=== PATIENT | female | born 1970 | race Two or more races ===

== ENCOUNTER → 2024-01-31 | Outpatient (CLI) | payer BC, SELFPAY ==
--- NOTE | 2024-01-31 14:39 | XR_ITS ---
Examination: Breast ultrasound complete, bilateral Date and time of exam: January 31, 2024 1447 hours INDICATIONS: Intermittent breast pain 5 months, left breast sonogram December 28, 2019 2:00 nodule 5 mm Technique: Real-time grayscale ultrasonographic imaging bilateral breasts, including all 4 quadrants as well as nipple retroareolar and axillary regions. Findings: Sonographic images right breast 12:00 cyst 5 x 7 mm 12:00 cyst 5 x 6 mm 9:00 cyst 4 x 3 mm No solid nodules Sonographic images left breast 2:00 cyst 6 x 6 mm No solid nodules IMPRESSION: BI-RADS Category 2: Benign findings
--- NOTE | 2024-01-31 14:39 | XR_ITS ---
Examination: Diagnostic digital mammography, bilateral Computer aided detection 3-D breast Tomosynthesis, bilateral Date and time of exam: January 31, 2024 1448 hours Compared to mammograms dating to November 30, 2019 Technique: Nonmagnified MLO, CC views of the breasts to been obtained, reconstructed from 3-D Tomosynthesis images. R2 computer aided detection program utilized for evaluation of suspicious masses and/or abnormal calcifications. 3-D Tomosynthesis images obtained. Findings: The breasts are heterogeneously dense, which may obscure small masses Breast biopsy marker slightly upper outer left breast Focal asymmetry stable upper inner left breast Impression: BI-RADS Category 0: Incomplete: Need additional imaging evaluation Recommend ultrasound left breast sonogram follow-up to document focal asymmetric glandular tissue inner left breast Recommend 1 continued 6 month left mammogram follow-up to document focal asymmetry upper outer left breast
== END | disposition home or self-care (01) ==
LOC: CDIM 14:29
PROVIDERS: PCP Physician Assistant; Referring Provider Physician Assistant Medical; Visit Provider Physician Assistant Medical
DX: R92.8 Other abnormal and inconclusive findings on diagnostic imaging of breast (principal); N64.89 Other specified disorders of breast; N60.01 Solitary cyst of right breast; N60.02 Solitary cyst of left breast
CPT/HCPCS: 76641; 77062; 77066; G0279

== ENCOUNTER → 2024-08-16 | Outpatient (CLI) | payer BC, SELFPAY ==
--- NOTE | 2024-08-16 13:30 | XR_ITS ---
Examination: Diagnostic digital mammography, unilateral, left Computer aided detection 3-D breast Tomosynthesis, unilateral Date and time of exam: August 16, 2024 1336 hours INDICATIONS: Mammogram January 31, 2024 focal asymmetry upper inner left breast also noted on February 02, 2023 Technique: Nonmagnified MLO, CC views of the left breast have been obtained, reconstructed from 3-D Tomosynthesis images. R2 computer aided detection program utilized for evaluation of suspicious masses and/or abnormal calcifications. 3-D Tomosynthesis images obtained. Findings: The breast is heterogeneously dense, which may obscure small masses No interval suspicious masses Impression: BI-RADS category 2: Benign findings Return to yearly follow-up mammography
== END | disposition home or self-care (01) ==
PROVIDERS: PCP Physician Assistant; Referring Provider Physician Assistant Medical; Visit Provider Physician Assistant Medical
DX: R92.332 Mammographic heterogeneous density, left breast (principal)
CPT/HCPCS: 77061; 77065; G0279